=== PATIENT | male | born 1965 | race Caucasian/White ===

== ENCOUNTER 2024-08-30 22:39 | Emergency (ER) | payer MEDICAID, OTHER ==
[~2024-08-30] VITALS: Ht 170.2 cm; Wt 77.1 kg
[2024-08-30 23:30] VITALS: BP 134/88; TEMP 98.5; O2SAT 98
[2024-08-30] MEDS ORDERED: IBUP-1953 PO (23:49)
[2024-08-31] MEDS ORDERED: KETOROLAC TROMETHAMINE INJ 30 MG/ML VIAL ONE (00:01)
[2024-08-31] MEDS: KETOROLAC TROMETHAMINE INJ 30 MG/ML VIAL IM ONE (00:07)
== END 2024-08-31 00:11 | disposition home or self-care (01) ==
LOC: ER 22:54
DX: M54.50 Low back pain, unspecified (principal)
CPT/HCPCS: 99283; 96372; J1885